=== PATIENT | male | born 2000 | race Hispanic/Latino ===

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

== ENCOUNTER 2019-04-04 13:41 | Outpatient (CLI) | payer OTHER ==
--- NOTE | 2019-04-04 15:18 | ULT ---
SCROTAL SONOGRAM WITH DUPLEX EVALUATION: HISTORY: Left scrotal mass. FINDINGS: The right testicle is 4 cm in length, and the left is 3.7 cm. Each has a normal sonographic appearan ce with good color and spectral Doppler flow. There is a small amount of fluid in the left side of t he scrotum. A 0.4 cm cyst is centered at the epididymal head, on the left. IMPRESSION: 1. No evidence of testicular mass or torsion. 2. Tiny left epididymal head cyst. 3. Small left hydrocele. Cause is not evident. POS: [facility]
== END 2019-04-04 13:42 | disposition home or self-care (01) ==
LOC: BICULT 13:41
DX: N50.812 Left testicular pain (principal); N43.3 Hydrocele, unspecified; N50.3 Cyst of epididymis
CPT/HCPCS: 76870; 93976